=== PATIENT | male | born 1985 | race Native Hawaiian/Other Pacific Islander ===

== ENCOUNTER 2018-12-25 09:52 | Emergency (ER) | payer OTHER ==
[2018-12-25 10:01] VITALS: BP 111/72
--- NOTE | 2018-12-25 11:44 | Emergency Department Report ---
[facility] Chief Complaint: Eye Problems Stated Complaint: POSS PINK EYE Time Seen by Provider: 12/25/18 11:17 Duration: 2 Days Side: Bilateral Severity: mild Symptoms: Yes Eye Itching, Yes Eye Redness, No Eye Pain, No Mucous Drainage, No Purulent Drainage, No Blurred Vision, No Preceding URI, No H/O Allergic Rhinitis, No Contact Lens Use, No Trauma, No Fever, No Headache Other History: This is a 61-year-old female nontoxic, well nourished in appearance, no acute signs of distress presents to the ED with c/o of left eye redness, itching and crusting that started 3 days ago. Patient denies any trauma to the eye. Denies any foreign body sensation or floaters. Patient denies any eye pain. Patient denies any visual changes or decreased vision. Patient denies any fever, chills, nausea, vomiting, chest pain, breath, headache, stiff neck numbness or tingling. Patient denies any allergies. ED Review of Systems ROS: Stated complaint: POSS PINK EYE Other details as noted in HPI Constitutional: denies: chills, fever Eyes: eye discharge. denies: eye pain, vision change ENT: denies: ear pain, throat pain Respiratory: denies: cough, shortness of breath, wheezing Cardiovascular: denies: chest pain, palpitations Endocrine: no symptoms reported Gastrointestinal: denies: abdominal pain, nausea, diarrhea Genitourinary: denies: urgency, dysuria Musculoskeletal: denies: back pain, joint swelling, arthralgia Skin: denies: rash, lesions Neurological: denies: headache, weakness, paresthesias Psychiatric: denies: anxiety, depression Hematological/Lymphatic: denies: easy bleeding, easy bruising ED Past Medical Hx - Past Medical History Previous Medical History?: No - Surgical History Past Surgical History?: No - Social History Smoking Status: Never Smoker Substance Use Type: None - Medications Home Medications: Home Medications Medication Instructions Recorded Confirmed Last Taken Type Polymyxin B Sulf/Trimethoprim 2 ml OU TID #1 drops 12/25/18 Unknown Rx [Polytrim Eye Drops] [facility] Exam - Exam General: Vital signs noted. No distress. Alert and acting appropriately. Eye Exam: Neither Injection, Neither Chemosis, Neither Abnormal Pupil, Neither EOMI, Neither Eye Foreign Body, Neither Lid Foreign Body, Neither Mucous Discharge, Neither Purulent Discharge, Neither Fluorescein Uptake, Neither Fluorescein Uptake (slit lamp), Neither Cell/Flare (slit lamp), Neither Corneal Edema, Neither Photophobia HEENT: No Nasal Congestion, No Pharyngeal Erythema Remainder of HEENT: Normal Exam: bilateral eye redness with itching and crusting noted. ED Course Vital Signs 12/25/18 10:01 Temperature 97.5 F L Pulse Rate 63 Respiratory 18 Rate Blood Pressure 111/72 O2 Sat by Pulse 98 Oximetry - Reevaluation(s) Reevaluation #1: 12/25/18 11:42 Patient is speaking in full sentences with no signs of distress noted. Critical care attestation.: If time is entered above; I have spent that time in minutes in the direct care of this critically ill patient, excluding procedure time. 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 Prescriptions: Polymyxin B Sulf/Trimethoprim [Polytrim Eye Drops] 2 ml OU TID #1 drops Referrals: PRIMARY CARE, [Referring] - 3-5 Days CAIN CUELLAR MD [Staff Physician] - 3-5 Days [facility] [Outside] - 3-5 Days Forms: Work/School Release Form(ED)
== END 2018-12-25 11:54 | disposition home or self-care (01) ==
LOC: ED 09:52
DX: H10.9 Unspecified conjunctivitis (principal)
CPT/HCPCS: 99281